=== PATIENT | female | born 1980 | race Caucasian/White ===

== ENCOUNTER 2020-04-15 09:50 | Outpatient (CLI) | payer OTHER, SELFPAY | END 2020-04-15 09:51 | disposition home or self-care (01) | LOC: ANHCOVIDVC 09:51 | PROVIDERS: PCP Emergency Medicine | DX: Z23 Encounter for immunization (principal) | CPT/HCPCS: 0001A; 91300 ==

== ENCOUNTER 2020-05-06 09:42 | Outpatient (CLI) | payer OTHER, SELFPAY | END 2020-05-06 09:43 | disposition home or self-care (01) | LOC: ANHCOVIDVC 09:42 | PROVIDERS: PCP Emergency Medicine | DX: Z23 Encounter for immunization (principal) | CPT/HCPCS: 0002A; 91300 ==

== ENCOUNTER 2020-12-07 19:54 | Emergency (ER) | payer OTHER, SELFPAY ==
--- NOTE | ~2020-12-07 | CT_ITS ---
EXAMINATION: CT abdomen pelvis wo con EXAM DATE: 12/07/2020 21:40 INDICATION: Vomiting and epigastric pain. TECHNIQUE: Spiral CT of the abdomen and pelvis was performed without contrast. Axial, coronal and s agittal images of the abdomen and pelvis were reviewed. The dose-length product (DLP) for this exami nation was 642.55 mGy-cm. The exposure was tailored according to patient size (auto mA exposure cont rol), and iterative reconstruction (ASIR) was used as additional dose reduction technique. There is no prior study for comparison. FINDINGS: The liver, spleen, adrenal glands and pancreas are unremarkable. Punctate calcification de pendent aspect of the gallbladder. No pericholecystic fat stranding. No biliary duct dilation. There is no nephrolithiasis or hydronephrosis. The uterus and ovaries are unremarkable, no adnexal mass. The bladder is unremarkable. There is no retroperitoneal or pelvic lymphadenopathy. The appendix is normal. The stomach and small bowel are unremarkable. There is expected amount of c olonic stool. No free intraperitoneal gas. The heart is normal in size. There are no pericardial or pleural effusions. The lung bases are unremarkable. There are no osteoblastic or osteolytic les ions identified. IMPRESSION: 1. No acute intra-abdominal findings. 2. Punctate cholelithiasis. Reviewed, dictated and finalized at location A.
--- NOTE | ~2020-12-07 | CT_ITS ---
EXAMINATION: CT brain wo con EXAM DATE: 12/07/2020 21:40 INDICATION: Nausea vomiting epigastric pain, glioblastoma. TECHNIQUE: Spiral CT of the head was performed without contrast. Axial, coronal and sagittal images were reviewed. The dose-length product (DLP) for this examination was 605.33 mGy-cm. The exposure w as tailored according to patient size, and iterative reconstruction (ASIR) was used as additional dos e reduction technique. Comparison is made to prior examination from 07/12/2018. 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 Bifrontal lashawn holes ov erlying this region. Bifrontal regions of dystrophic calcification. There is a right frontal lobe reg ion measuring about 8 mm along the margin of encephalomalacia which is more dense than ferguson matter, c ould be region of laminar necrosis, early dystrophic calcification, probably treatment related change but patient has certainly had follow-up MRI examinations at outside institution which are more speci fic. There is moderate diffuse white matter hypodensity, probably radiation related change. No acute intra cranial hemorrhage, definite glioblastoma recurrence, brain mass, acute infarction, obstructive hydro cephalus, extra-axial collection or other suspicious findings. IMPRESSION: 1. 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 2. No acute findings. Reviewed, dictated and finalized at location A.
[2020-12-07 19:56] VITALS: BP 171/72; PULSE 69; RESP 18; TEMP 36.6; O2SAT 100
[2020-12-07 20:13] LABS: Hematocrit 37.7 % (37.0-47.0); Hemoglobin 13.2 g/dL (12.0-15.0); Immature Granulocyte Absolute 0.05 K/mm3 (0.00-0.031); Immature Granulocyte Percent A 0.5 % (0-0.5); Lymphocytes Absolute Auto 0.49 K/mm3 (0.9-3.2); Lymphocytes Percent Auto 5.3 % (18.3-44.2); Mean Corpuscular Volume 94.3 fl (80-100); Mean Platelet Volume 8.6 fl (7.4-10.4); Monocytes Absolute Auto 0.3 K/mm3 (0.1-0.6); Monocytes Percent Auto 3.3 % (2.6-8.5); Neutrophils Absolute Auto 8.4 K/mm3 (1.3-6.7); Neutrophils Percent Auto 90.9 % (45.5-73.1); Platelet Count Result 141 k/mm3 (150-375); Red Cell Distribution Width 12.4 % (11.5-14.5); White Blood Count 9.2 K/mm3 (4.5-10.0)
[2020-12-07 20:25] LABS: Alanine Aminotransferase 70 U/L (4-35); Alkaline Phosphatase 105 U/L (38-126); Anion Gap 15 mmol/L (8-16); Aspartate Amino Transferase 95 U/L (14-36); Blood Urea Nitrogen 16 mg/dL (7-17); Calcium 9.7 mg/dL (8.4-10.2); Carbon Dioxide 19 mmol/L (22-30); Chloride 106 mmol/L (98-107); Estimated CRCL calculation 86 ml/min; Estimated Glomerular Filt Rate > 60; Glucose 185 mg/dL (65-110); Lipase 66 U/L (23-300); Potassium 4.1 mmol/L (3.4-5.0); Sodium 140 mmol/L (137-145)
[2020-12-07] MEDS: PROCHLORPERAZINE EDISYLATE 10 MG/2 ML VIAL IV PUSH (20:40)
[2020-12-07] MEDS: LACTATED RINGERS 1,000 ML 999 ML IV CONT (20:40)
[2020-12-07 21:50] VITALS: BP 185/84; PULSE 68; RESP 18; O2SAT 99
[2020-12-07 22:06] VITALS: BP 188/82; PULSE 81
[2020-12-07 22:07] VITALS: BP 154/93; PULSE 88
[2020-12-07 22:10] VITALS: BP 130/96; PULSE 98
[2020-12-07 22:36] LABS: Add Urine Microscopic? YES; Appearance Urine Cloudy (Clear); Bilirubin Urine Negative (Negative); Blood Urine Negative (Negative); Color Urine Yellow (Yellow); Glucose Urine UA 2+ mg/dL (Negative); Ketones Urine 2+ mg/dL (Negative); Leukocyte Esterase Ur Negative LEU/UL (Negative); Mucus Urine Rare /lpf; Nitrate Urine Negative (Negative); Protein Urine Negative (Negative); Specific Grav Ur 1.014 (1.001-1.035); Squamous Epithelial Cell Urine Occasional /hpf (Few); Urobilinogen Urine Negative mg/dL (<2.0); WBC Urine 0-3 /hpf
[2020-12-07 22:59] VITALS: BP 177/92; PULSE 73; RESP 18; O2SAT 100
--- NOTE | 2020-12-08 00:03 | ED.NAVMDI ---
HPI - Nausea/Vomiting/Diarrhea General Chief complaint: Nausea/Vomiting/Diarrhea Stated complaint: vomiting Time Seen by Provider: 12/07/20 19:59 Source: patient and family Mode of arrival: ambulatory Limitations: no limitations History of Present Illness HPI Narrative: 40-year-old female History of a brain tumor Here because of concerns for food poisoning She has had nausea and vomiting but no diarrhea since about 4 PM She had some epigastric discomfort as well No fever, no dysuria None of her family members or contacts are ill, no recent travel Related Data Home Medications Medication Instructions Recorded Confirmed levetiracetam PO 12/07/20 12/07/20 pentoxifylline mg PO 12/07/20 Allergies Allergy/AdvReac Type Severity Reaction Status Date / Time morphine Allergy Unknown Unknown Verified 12/07/20 20:07 phenytoin Allergy Unknown Unknown Verified 12/07/20 20:07 Review of Systems Review of Systems: All systems reviewed & are unremarkable except as noted in HPI and below Constitutional: Constitutional: Reports no additional constitutional complaints, Reports chills, Reports fatigue, Denies fever(s), Denies headache(s) and Reports weakness Eyes: Eyes: Reports no additional eye complaints and Denies change in vision ENT: Denies headache(s) and Denies sore throat Cardiovascular: Cardiovascular: Denies chest pain and Denies dyspnea Respiratory: Respiratory: Denies cough and Denies dyspnea Gastrointestinal: Gastrointestinal: Reports abdominal pain, Denies bloating, Denies constipation, Denies diarrhea, Reports nausea and Reports vomiting Genitourinary: Genitourinary: Denies urinary frequency, Denies nocturia and Denies dysuria Musculoskeletal: Musculoskeletal: Reports myalgias, Denies deformity, Denies arthralgias, Denies joint swelling and Denies numbness Integumentary/Breasts: Skin/Breast: Denies rash and Denies wounds Neurologic: Denies headache(s), Denies focal weakness and Denies numbness Psychiatric: Psychiatric: Reports no additional psychiatric complaints Endocrine: Endocrine: Reports no additional endocrine complaints Hematologic/Lymphatic: Hematologic/Lymphatic: Reports no additional hematologic/lymphatic complaints Allergic/Immunologic: Allergic/Immunologic: Reports no additional allergic/immunologic complaints PMFSH Family History Family History Mother Patient's mother is in good health, Onset Age: 58 Father Patient's father is in good health, Onset Age: 52 Social History Social History Smoking status: Former smoker Alcohol intake: current Exam Const: General: no acute distress, alert and ill appearing Orientation/consciousness: patient oriented x3 HENMT: Head: normocephalic, atraumatic, no contusions and no hematomas Ears: external ears normal General nose exam: no epistaxis Eyes: Conjunctivae: conjunctivae normal EOM: EOMs intact bilaterally Neck: Neck: normal visual inspection, supple and no JVD Resp: Effort & Inspection: normal respiratory effort and not labored Auscultation: clear to auscultation bilaterally, no rales, no rhonchi, no wheezes and other (BS =) Cardio: Rate: regular rate Rhythm: regular rhythm Heart sounds: no murmurs GI: Inspection: non-distended GI Palp: Yes Soft to palpation, Yes Tenderness to palpation present (GI) (Mild, epigastric), No Guarding due to palpation present (GI) and No Rebound tenderness present Other: No right upper quadrant tenderness or Ruffin sign : General: Yes no CVA tenderness Skin: General skin exam: normal color and no rashes or lesions noted Neuro: General: patient oriented x3 (alert) and moves all extremities Speech: normal speech Extrem: General: normal to inspection and no pedal edema Psych: Affect: normal affect Course Course Emergency Course: No further vomiting Work-up pretty unremarka
[2020-12-08] MEDS: levETIRAcetam 500MG/NACL 100ML 500 MG/100 ML BAG 400 MG IVPB (00:07)
[2020-12-08 00:32] VITALS: BP 188/93; PULSE 83; RESP 18; O2SAT 100
== END 2020-12-08 00:37 | disposition home or self-care (01) ==
PROVIDERS: Emergency Medicine; Emergency Provider Emergency Medicine; PCP Emergency Medicine
DX: R11.2 Nausea with vomiting, unspecified (principal); Z87.891 Personal history of nicotine dependence; Z85.841 Personal history of malignant neoplasm of brain
CPT/HCPCS: 36415; 70450; 74176; 80053; 81001; 81025; 83690; 85025; 96361; 96365; 96374; 99284; J0780; J1953; J7120

== ENCOUNTER 2020-12-09 15:38 | Emergency (ER) | payer OTHER, SELFPAY ==
[2020-12-09 15:46] VITALS: BP 144/80; PULSE 85; RESP 14; TEMP 36.6; O2SAT 100
[2020-12-09 16:02] LABS: Hematocrit 40.6 % (37.0-47.0); Hemoglobin 13.8 g/dL (12.0-15.0); Immature Granulocyte Absolute 0.02 K/mm3 (0.00-0.031); Immature Granulocyte Percent A 0.2 % (0-0.5); Lymphocytes Absolute Auto 0.49 K/mm3 (0.9-3.2); Lymphocytes Percent Auto 5.8 % (18.3-44.2); Mean Corpuscular Hemoglobin 33.1 pg (26-34); Mean Corpuscular Volume 97.4 fl (80-100); Mean Platelet Volume 8.6 fl (7.4-10.4); Monocytes Absolute Auto 0.2 K/mm3 (0.1-0.6); Monocytes Percent Auto 2.6 % (2.6-8.5); Neutrophils Absolute Auto 7.7 K/mm3 (1.3-6.7); Neutrophils Percent Auto 91.4 % (45.5-73.1); Platelet Count Result 162 k/mm3 (150-375); Red Blood Count 4.17 M/mm3 (4.2-5.4); Red Cell Distribution Width 12.6 % (11.5-14.5); White Blood Count 8.4 K/mm3 (4.5-10.0)
[2020-12-09 16:19] LABS: Alanine Aminotransferase 74 U/L (4-35); Albumin Level 5.1 g/dL (3.5-5.1); Alkaline Phosphatase 95 U/L (38-126); Anion Gap 11 mmol/L (8-16); Aspartate Amino Transferase 52 U/L (14-36); Bilirubin,Total 1.1 mg/dL (0.2-1.3); Blood Urea Nitrogen 25 mg/dL (7-17); Calcium 9.9 mg/dL (8.4-10.2); Carbon Dioxide 27 mmol/L (22-30); Chloride 102 mmol/L (98-107); Estimated CRCL calculation 74 ml/min; Estimated Glomerular Filt Rate > 60; Glucose 170 mg/dL (65-110); Lipase 54 U/L (23-300); Potassium 3.9 mmol/L (3.4-5.0); Sodium 140 mmol/L (137-145)
[2020-12-09 18:19] VITALS: BP 152/86; PULSE 72; RESP 16; O2SAT 98
--- NOTE | 2020-12-09 18:39 | ED.GENADULT ---
HPI - General Adult General Chief complaint: Nausea/Vomiting/Diarrhea Stated complaint: Nausea, Vomiting Time Seen by Provider: 12/09/20 18:15 Source: patient Mode of arrival: ambulatory Limitations: no limitations History of Present Illness HPI narrative: Patient presents for evaluation of nausea and vomiting. She indicates last week Wednesday she was walking her dog and tripped, falling several times. She does not believe she hit her head nor did she have a loss of consciousness. She had some variable joint pain following her falls. She also had some headaches began vomiting on Wednesday. She presented here where CT head was performed and showed changes consistent with reported history of glioblastoma. She had CT abdomen pelvis that showed cholelithiasis. She was discharged home with a prescription for Compazine. Her nausea subsided. Today she had recurrence of her symptoms. She denies any abdominal pain whatsoever. She denies fever, chills, urinary symptoms, vaginal bleeding or discharge. She has serial MRIs of her head every 3-4 months with last about one month ago. She was told at that time was no progression of pathology. She has undergone chemo and radiation in the past for glioblastoma. Related Data Home Medications Medication Instructions Recorded Confirmed levetiracetam PO 12/07/20 12/07/20 pentoxifylline mg PO 12/07/20 Allergies Allergy/AdvReac Type Severity Reaction Status Date / Time morphine Allergy Unknown Unknown Verified 12/07/20 20:07 phenytoin Allergy Unknown Unknown Verified 12/07/20 20:07 Review of Systems Review of Systems: CONSTITUTIONAL: Denies fever, chills, or sweats. EYES: Denies visual changes, redness, or discharge. ENT: Denies rhinorrhea, congestion, sore throat, or otalgia. CARDIOVASCULAR: Denies chest pain, palpitations, or edema. RESPIRATORY: Denies cough or dyspnea. GASTROINTESTINAL: Nausea, vomiting, change in bowel pattern. Denies abdominal pain GENITOURINARY: Denies dysuria or hematuria. SKIN: Denies rash or itching. MUSCULOSKELETAL: Denies back pain, joint pain, or myalgia. NEUROLOGIC: Denies headache, numbness, dizziness, or weakness. PSYCHIATRIC: Denies anxiety or depression. 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 HEAD: Normocephalic, atraumatic. EYES: PERRLA and EOMI. ENT: Nares clear, no rhinorrhea or epistaxis. Mucous membranes moist. Oropharynx without tonsillar hypertrophy exudate or other lesions. Bilateral TMs pearly ferguson nonbulging NECK: Supple. No adenopathy or masses. No carotid bruits or JVD CHEST: Clear to auscultation. No respiratory distress. No wheezes rales or rhonchi HEART: Regular rate and rhythm. No murmur heard. Normal peripheral pulses. ABDOMEN: Soft, nontender, nondistended, normal active bowel sounds. EXTREMITIES: Normal range of motion. No edema. SKIN: Warm, dry, no rash. NEURO: No focal deficits. Alert and oriented x3. PSYCH: Normal mood and affect. Course Course Emergency Course: This is a 40-year-old female wh
[2020-12-09] MEDS: SODIUM CHLORIDE 0.9% IV 1,000 ML 1000 ML IV CONT (19:12)
[2020-12-09] MEDS: FAMOTIDINE 20 MG/2 ML VIAL IV PUSH (19:13)
[2020-12-09] MEDS: PROMETHAZINE HCL 25 MG/ML AMPUL 12.5 MG IV PUSH (19:20)
[2020-12-09 20:09] VITALS: BP 152/81; PULSE 70; RESP 16; O2SAT 98
[2020-12-09 20:51] LABS: Add Urine Microscopic? YES; Appearance Urine Cloudy (Clear); Bacteria Urine Trace /hpf; Bilirubin Urine Negative (Negative); Blood Urine Negative (Negative); Color Urine Yellow (Yellow); Glucose Urine UA 1+ mg/dL (Negative); Ketones Urine 2+ mg/dL (Negative); Leukocyte Esterase Ur Trace LEU/UL (Negative); Mucus Urine Few /lpf; Nitrate Urine Negative (Negative); Protein Urine 1+ mg/dL (Negative); Specific Grav Ur 1.021 (1.001-1.035); Squamous Epithelial Cell Urine Moderate /hpf (Few); Urobilinogen Urine Negative mg/dL (<2.0)
[2020-12-09] MEDS: levETIRAcetam 500MG/NACL 100ML 500 MG/100 ML BAG 400 MG IVPB (22:12)
[2020-12-09 22:58] VITALS: BP 157/87; PULSE 71; RESP 16; O2SAT 100
== END 2020-12-09 22:45 | disposition home or self-care (01) ==
PROVIDERS: General Practice; Emergency Provider Nurse Practitioner; PCP Emergency Medicine
DX: N30.00 Acute cystitis without hematuria (principal); R11.2 Nausea with vomiting, unspecified; Z87.891 Personal history of nicotine dependence; Z85.841 Personal history of malignant neoplasm of brain; Z92.21 Personal history of antineoplastic chemotherapy; Z92.3 Personal history of irradiation
CPT/HCPCS: 36415; 80053; 81001; 81025; 83690; 85025; 96361; 96374; 96375; 99284; J1953; J2550; J3010; J7030

== ENCOUNTER → 2020-12-19 10:10 | Outpatient (CLI) | payer OTHER, SELFPAY ==
--- NOTE | ~2020-12-19 | US_ITS ---
US abdomen limited INDICATION: Nausea and vomiting PROCEDURE: Realtime right upper abdominal ultrasound. COMPARISON: No prior studies for comparison. FINDINGS: The pancreas is normal without focal mass or pancreatic ductal dilation. Liver echotexture is normal without focal mass or intrahepatic biliary dilatation. There is normal directional flow i n the portal vein. There are multiple gallstones. Gallbladder is contracted limiting evaluation for gallbladder wall thi ckening. Common bile duct measures 3 mm. No sonographic Ruffin's sign. IMPRESSION: 1: Cholelithiasis. Reviewed, dictated and finalized at location A. [employer] IMPRESSION: 1: Cholelithiasis.
== END ==
PROVIDERS: PCP Emergency Medicine; Visit Provider Emergency Medicine
DX: R11.2 Nausea with vomiting, unspecified (principal); K80.20 Calculus of gallbladder without cholecystitis without obstruction
CPT/HCPCS: 76705

== ENCOUNTER 2020-12-24 11:35 | Observation (INO) | payer OTHER, SELFPAY ==
--- NOTE | 2020-12-24 11:45 | ADMGEN ---
This patient, Sherrill West, was admitted to 3 [facility] Surg Room 315-01. Patient/family oriented to hospital policies and general routines including ID bracelet, bed and alarms, visiting hours, pain management, procedures, bathroom and other care routines, personal items, smoking policy, room service/diet, and visiting hours. Information on how to activate the Rapid Response Team has been discussed. Patient/Family are encouraged to report perceived risks to care and to ask questions if they do not understand what they are told or what they should do.
--- NOTE | 2020-12-24 13:59 | PM.IMHP ---
H&P: HPI History of Present Illness Date/Time: 12/24/20 13:59 Chief Complaint: Upper abdominal pain, intractable nausea and vomiting Narrative: this is a 40-year-old woman who presented to the office this morning abdominal pain with nausea and vomiting. This has been going on for the past couple weeks and she has been to the emergency department twice. She has had workup which is showed evidence of cholelithiasis. She has not been able to keep hardly any food down over the past several days and has been nauseated and vomiting constantly. She does have a prior history of glioblastoma, but all of her follow-up MRIs and exams have shown complete remission. She states that she did not have any of these similar symptoms with the glioblastoma and her last visit with her oncologist was 1 of the most reassuring who visits she has had in a long time. Head CT on 12/08/2020 was negative. She has had abdominal CT and ultrasound which have shown evidence of cholelithiasis. She does have a strong family history of gallbladder disease. Review of Systems Review of Systems: All systems reviewed & are unremarkable except as noted in HPI and below Constitutional: Constitutional: Denies chills and Denies fever(s) Eyes: Eyes: Denies change in vision ENT: Denies hearing loss, Denies neck pain and Denies sore throat Cardiovascular: Cardiovascular: Denies chest pain and Denies dyspnea Respiratory: Respiratory: Denies cough, Denies dyspnea and Denies wheezing Gastrointestinal: Gastrointestinal: Reports as per HPI Genitourinary: Genitourinary: Denies hematuria and Denies dysuria Musculoskeletal: Musculoskeletal: Denies arthralgias, Denies joint swelling and Denies neck pain Allergic/Immunologic: Allergic/Immunologic: Denies wheezing [facility] Past Medical History Medical History Glioblastoma Seizure Surgical History Surgical History H/O brain surgery Family History Family History Mother Patient's mother is in good health, Onset Age: 58 Father Patient's father is in good health, Onset Age: 52 Social History Social History Smoking status: Never smoker Alcohol intake: current Drinks per week: 1 Substance use: never 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 Gender identity (if verbalized by the patient): Female Sexual Orientation (if Verbalized by the Patient): Straight or Heterosexual Spiritual care concerns: No Meds Home Medications and Allergies Home Medications Medication Instructions Recorded Confirmed Type promethazine 12.5 - 25 mg PO TID PRN #20 tablet 12/09/20 12/24/20 Rx levetiracetam 500 mg tablet 500 mg PO BID 12/11/20 12/24/20 History pentoxifylline 400 mg 400 mg PO BID 12/11/20 12/24/20 History tablet,extended release Allergies Allergy/AdvReac Type Severity Reaction Status Date / Time morphine Allergy Unknown Unknown Verified 12/24/20 12:33 phenytoin Allergy Unknown Unknown Verified 12/24/20 12:33 Exam Const: General: alert; No acute distress Orientation/consciousness: patient oriented x3 Limitations: no limitations HENMT: Head: normocephalic and atraumatic Ears: hearing grossly normal bilaterally General nose exam: Normal external nose present and Normal nares present Mouth: Yes Normal oral and palatal mucosa present and Yes moist mucous membranes Eyes: General: appearance normal, both eyes and all related structures Conjunctivae: conjunctivae normal Sclera: sclerae normal Pupils: Equal, round and reactive pupils present EOM: EOMs intact bilaterally Neck: Neck: normal visual inspection, full ROM, no lymphadenopathy, supple and no JVD Lymphatic: no lymphadenopathy noted Chest: Chest palpation & inspection: normal inspection of
[2020-12-24 14:00] VITALS: BP 198/121; PULSE 98; RESP 20; O2SAT 100
[2020-12-24] MEDS: ONDANSETRON INJ 4 MG/2 ML VIAL IV PUSH (14:32)
[2020-12-24] MEDS: LACTATED RINGERS 1,000 ML 150 ML IV CONT ×2 (14:39→21:56)
[2020-12-24 14:48] LABS: Hematocrit 39.1 % (37.0-47.0); Hemoglobin 13.6 g/dL (12.0-15.0); Immature Granulocyte Absolute 0.03 K/mm3 (0.00-0.031); Immature Granulocyte Percent A 0.4 % (0-0.5); Lymphocytes Percent Auto 5.8 % (18.3-44.2); Mean Corpuscular HGB Conc 34.8 g/dl (32-36); Mean Corpuscular Hemoglobin 32.2 pg (26-34); Mean Corpuscular Volume 92.4 fl (80-100); Mean Platelet Volume 9.1 fl (7.4-10.4); Monocytes Absolute Auto 0.3 K/mm3 (0.1-0.6); Monocytes Percent Auto 3.7 % (2.6-8.5); Neutrophils Absolute Auto 6.3 K/mm3 (1.3-6.7); Neutrophils Percent Auto 90.1 % (45.5-73.1); Platelet Count Result 189 k/mm3 (150-375); Red Blood Count 4.23 M/mm3 (4.2-5.4); White Blood Count 6.9 K/mm3 (4.5-10.0)
[2020-12-24 15:00] LABS: Alanine Aminotransferase 49 U/L (4-35); Albumin Level 5.3 g/dL (3.5-5.1); Alkaline Phosphatase 103 U/L (38-126); Amylase 61 U/L (30-110); Anion Gap 16 mmol/L (8-16); Aspartate Amino Transferase 28 U/L (14-36); Bilirubin,Total 1.2 mg/dL (0.2-1.3); Blood Urea Nitrogen 13 mg/dL (7-17); Carbon Dioxide 20 mmol/L (22-30); Chloride 100 mmol/L (98-107); Estimated Glomerular Filt Rate > 60; Glucose 144 mg/dL (65-110); Lipase 93 U/L (23-300); Potassium 3.9 mmol/L (3.4-5.0); Sodium 136 mmol/L (137-145)
[2020-12-24] MEDS: levETIRAcetam 500MG/NACL 100ML 500 MG/100 ML BAG 400 MG IVPB ×2 (15:46→20:29)
[2020-12-24 17:52] VITALS: BP 160/82
--- NOTE | 2020-12-24 17:59 | PC.NURSE ---
pt and wish to speak to MD before signing consent
[2020-12-24 22:00] VITALS: BP 178/104; PULSE 108; RESP 18; TEMP 36.9; O2SAT 100
[2020-12-24 23:27] VITALS: O2SAT 98
[2020-12-25 06:26] VITALS: BP 177/106; PULSE 94; RESP 14; TEMP 36.6; O2SAT 100
[2020-12-25] MEDS: LACTATED RINGERS 1,000 ML 150 ML IV CONT ×3 (07:12→20:20)
[2020-12-25] MEDS: levETIRAcetam 500MG/NACL 100ML 500 MG/100 ML BAG 400 MG IVPB ×2 (08:40→20:13)
[2020-12-25 09:30] VITALS: BP 168/108; PULSE 87; RESP 16; TEMP 36.7; O2SAT 100
[2020-12-25 10:11] LABS: Beta HCG Quantitative < 2.39 mIU/ML
[2020-12-25] MEDS: ONDANSETRON INJ 4 MG/2 ML VIAL IV PUSH (10:48)
[2020-12-25 14:00] VITALS: BP 186/107; PULSE 94; RESP 18; TEMP 36.9; O2SAT 100
[2020-12-25 17:07] VITALS: PULSE 92
[2020-12-25] MEDS: METOPROLOL TARTRATE INJ 5 MG/5 ML VIAL IV PUSH (17:07)
--- NOTE | 2020-12-25 17:16 | P.PNGS_ITS ---
Progress Note: A&P Assessment and Plan (1) Acute calculous cholecystitis: Code(s): K80.00 - Calculus of gallbladder with acute cholecystitis without obstruction Status: Acute Assessment and Plan: * Will delay surgery until tomorrow. Patient placed on clear liquids. (2) Intractable nausea and vomiting: Code(s): R11.2 - Nausea with vomiting, unspecified Status: Acute (3) Seizure disorder: Code(s): G40.909 - Epilepsy, unspecified, not intractable, without status epilepticus Status: Acute (4) Hypertension: Code(s): I10 - Essential (primary) hypertension Status: Acute Assessment and Plan: * Blood pressure has been high today. Will add prn Metoprolol. Patient can follow up with PCP if this persists. Subjective Subjective Date/Time Seen: 12/25/20 17:16 Interval history: Patient still having nausea and occasional vomiting. Surgery was unable to be performed today due to longer preceding cases. Pain minimal. No fevers. Exam GI: GI Palp: Yes Tenderness to palpation present (GI) (minimal epigastric) Objective Data Vital Signs Vital Signs: Vital Signs - 24 hr 12/24/20 17:52 12/24/20 22:00 12/24/20 23:27 Temperature 36.9 C Pulse Rate 108 H Respiratory Rate 18 Blood Pressure 160/82 H 178/104 H Pulse Oximetry 100 98 12/25/20 06:26 12/25/20 09:30 12/25/20 14:00 Temperature 36.6 C 36.7 C 36.9 C Pulse Rate 94 87 94 Respiratory Rate 14 16 18 Blood Pressure 177/106 H 168/108 H 186/107 H Pulse Oximetry 100 100 100 12/25/20 17:07 Temperature Pulse Rate 92 Respiratory Rate Blood Pressure Pulse Oximetry Intake/Output Intake/Output: Intake & Output 12/22/20 12/23/20 12/24/20 12/25/20 23:59 23:59 23:59 23:59 Intake Total 1400 2100 Balance 1400 2100 Meds/Results Medications: Active Medications Generic Name Dose Route Start Last Admin Trade Name Freq PRN Reason Stop Dose Admin Lactated Ringer's 1,000 mls @ 150 mls/hr 12/24/20 13:55 12/25/20 14:17 Lr - Lactated Ringers Iv IV CONT 150 mls/hr .Q6H40M DEAN Administration Levetiracetam 500 mg in 100 mls @ 400 mls/hr 12/24/20 21:00 12/25/20 08:55 Keppra Iv IVPB Infused Q12HR DEAN Infusion Lactated Ringer's 1,000 mls @ 30 mls/hr 12/25/20 09:30 Lr - Lactated Ringers Iv IV CONT .Q24H DEAN Metoprolol Tartrate 5 mg 12/25/20 15:46 12/25/20 17:07 Metoprolol Tartrate Inj 5 Mg/5 Ml Vial IV PUSH 5 mg Q6H PRN Administration Systolic BP >160 Ondansetron HCl 4 mg 12/24/20 13:52 12/25/20 10:48 Ondansetron Inj 4 Mg/2 Ml Vial IV PUSH 4 mg Q6H PRN Administration Nausea And Vomiting Labs Labs: Laboratory Results - last 24 hr 12/24/20 14:13 Beta HCG, Quant < 2.39
[2020-12-25 19:52] VITALS: BP 176/98; PULSE 79; RESP 16; TEMP 36.4; O2SAT 100
[2020-12-26] VITALS (13 sets, daily range): BP systolic 131–176; BP diastolic 61–99; PULSE 72–108; RESP 14–18; TEMP 36–37.4; O2SAT 96–100
[2020-12-26] MEDS: LACTATED RINGERS 1,000 ML 150 ML IV CONT (03:53)
--- NOTE | 2020-12-26 06:48 | WPDANESEPPF ---
Anes - Initial Pre Proc Eval Procedure: Operation Date: 12/26/20 09:00 Proposed Procedures p Laparoscopic Cholecystectomy,Possible Open - Angelo Ho DO Date/Time: 12/26/20 06:48 Surgeon: Angelo Ho DO Pre Op Diagnosis: acute acalculus cholecystitis Patient Data Age: 40 Gender: F Height: Weight: Last Vital Signs Temp 36.1 C L 12/26/20 06:00 Pulse 72 12/26/20 06:00 Resp 16 12/26/20 06:00 BP 166/61 H 12/26/20 06:00 Pulse Ox 100 12/26/20 06:00 Allergies Allergy/AdvReac Type Severity Reaction Status Date / Time morphine Allergy Unknown Unknown Verified 12/24/20 12:33 phenytoin Allergy Unknown Unknown Verified 12/24/20 12:33 Home Medications Medication Instructions Recorded Confirmed Type promethazine 12.5 - 25 mg PO TID PRN #20 tablet 12/09/20 12/24/20 Rx levetiracetam 500 mg tablet 500 mg PO BID 12/11/20 12/24/20 History pentoxifylline 400 mg 400 mg PO BID 12/11/20 12/24/20 History tablet,extended release Laboratory Tests 12/24/20 14:13 Beta HCG, Quant < 2.39 mIU/ML mIU/ML Patient hx anesthesia problems: none Family hx anesthesia problems: none Results Review: All pre-operative results and documents have been reviewed as part of the pre-operative evaluation. 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 Gender identity (if verbalized by the patient): Female Sexual Orientation (if Verbalized by the Patient): Straight or Heterosexual Spiritual care concerns: No Anes - Eval Final PreProcedure Day of Procedure 12/26/20 06:48 Patient weight: obese Heart: regular rate and rhythm Lungs: clear to auscultation and normal air movement Airway: Mallampati scale class II Neurological: alert and oriented Last oral intake: >/= 8 hours ASA classification: IV Emergent: no Anesthetic plan: proceed Anesthesia type and monitoring: general ETT Results Review: All pre-operative results and documents have been reviewed as part of the pre-operative evaluation. Informed Consent: The patient's anesthetic plan and its attendant risks and benefits were discussed with the patient/family/POA. Questions were solicited and answers provided to the satisfaction of the patient/family/POA.
[2020-12-26] MEDS: LACTATED RINGERS 1,000 ML 30 ML IV CONT (07:00)
--- NOTE | 2020-12-26 08:48 | WPDHPUPDATE1 ---
History and Physical Update Update Date/Time: 12/26/20 08:48 History and Physical has been reviewed, including an updated exam of the patient. There are NO changes in the patient's condition. Risks, benefits, and alternatives have been discussed and questions answered. Patient agrees to proceed with procedure.
[2020-12-26] MEDS: levETIRAcetam 500MG/NACL 100ML 500 MG/100 ML BAG 400 MG IVPB (08:56)
[2020-12-26] MEDS: ceFAZolin 2 GM/D5W 50 ML 2 GM/50 ML BAG IVPB (09:42)
--- NOTE | 2020-12-26 10:39 | W.PM.PROC2 ---
Procedure Note - Detailed Date of Procedure 12/26/20 Pre-op Diagnosis acute acalculus cholecystitis Post-op Diagnosis same Procedure Performed Laparoscopic Cholecystectomy Surgeon Angelo Ho, DO Anesthesia MAC and local (0.5% bupivacaine) Indications This is a 40-year-old woman who presented with upper abdominal pain with intractable nausea and vomiting over the past couple weeks. She has been to the emergency department twice. CT and ultrasound of showed evidence of cholelithiasis, but no surrounding signs of inflammation. She was seen in the office on 12/24 and was having more constant pain with persistent nausea and vomiting. Decision was made to admit patient directly from the office and plan to proceed with laparoscopic cholecystectomy within the next 1-2 days. Findings Laparoscopic cholecystectomy was performed. The gallbladder had some mild gallbladder wall thickening and several small gallstones were noted within the gallbladder lumen. The cystic duct appeared normal in size. There was 1 lymph node within Calot's triangle. No other intra-abdominal abnormalities were noted. The gallbladder was removed and sent to the lab for pathology. Description of Procedure Procedure as well as risks, benefits, and alternatives were discussed with patient. Written consent was obtained and placed in chart prior to procedure. The patient was brought back to surgical suite. Patient was placed in supine position on operating table. Time-out was done to confirm patient and procedure. Patient was then intubated by the anesthesia department. Abdomen was prepped and draped in sterile fashion using chlorhexidine prep. 0.5% bupivacaine with epinephrine was infiltrated at each site of incision. A 5 millimeter incision was made near the umbilicus, and a 5 millimeter Optiview trocar was advanced through the abdominal layers under direct visualization. Once inside the abdominal cavity, carbon dioxide was insufflated to create a pneumoperitoneum. The camera was inserted and the abdomen was inspected. No immediate abnormalities were identified. The patient was placed in reverse Trendelenburg position and rotated slightly to the left. An 11 millimeter incision was made in the subxiphoid region, and an 11 millimeter trocar was inserted under direct visualization. Two 5 millimeter incisions were made in the right upper quadrant, and two 5 millimeter trocars were inserted under direct visualization. The gallbladder was identified and grasped at the fundus and retracted superiorly. It was then grasped at the infundibulum retracted laterally. Careful dissection around the neck of the gallbladder was performed using blunt dissection with a [place] grasper and hook electrocautery. The cystic duct was identified, and a window was created behind it. The cystic artery was also identified and a window was created behind it. The critical view of safety was identified, visualizing the cystic duct running directly into the neck of the gallbladder, and the cystic artery running directly into the wall of the gallbladder. A 5 millimeter clip team assembly line machine operator was then used to place 2 clips proximally and 1 clip distally on both the cystic duct and cystic artery. They were then both transected using endoscopic scissors. Once safely away from the live hepatitis, the gallbladder was dissected free from the liver bed using hook electrocautery. Hemostasis was achieved along the way. The gallbladder was removed completely and then removed through the subxiphoid port. The liver bed was then inspected. Hemostasis appeared adequate, and our clips appeared secure. The area was gently irrigated with sterile saline. No other abnormalities were seen. The patient was flattened out in bed, and 1 final inspection was made around the abdominal cavity. The subxiphoid port was removed, and a Blair Ashley cone was used to approximate the fascia with an 0-Vicryl simple interrupted suture. The re
--- NOTE | 2020-12-26 11:21 | SUR.PHASEI ---
PT BP ELEVATED. 170S/100. HR 70. DR GRULLON NOTIFIED. HYDRALAZINE 10MG IV ORDERED
[2020-12-26] MEDS: hydrALAZINE HCL 20 MG/ML VIAL 10 MG IV PUSH (11:27)
--- NOTE | 2020-12-26 11:33 | SUR.PHASEI ---
PT C/O MILD DIZZINESS. EXPLAINED HER BP IS ELEVATED AND GIVING MED FOR IT. INSTRUCTED PT TO LET RN NOW IF WORSENS. PT VERBALIZED UNDERSTANDING
--- NOTE | 2020-12-26 11:41 | SUR.PHASEI ---
PT STATES DIZZINESS IS GONE NOW. BP 140S/80S
--- NOTE | 2020-12-26 11:55 | SUR.PHASEI ---
PT DENIES PAIN OR NAUSEA. STATES DIZZINESS IS GONE. RESTING QUIETLY
[2020-12-26] MEDS: ONDANSETRON INJ 4 MG/2 ML VIAL IV PUSH ×2 (12:06→13:43)
--- NOTE | 2020-12-26 12:20 | SUR.PHASEI ---
PT STATES RELIEF OF NAUSEA
--- NOTE | 2020-12-26 12:28 | SUR.PHASEI ---
PT AWAKE AND ALERT. TALKATIVE. WAITING TO GIVE REPORT
--- NOTE | 2020-12-26 12:29 | SUR.PHASEI ---
PT UNABLE TO VOID ON BEDPAN.
--- NOTE | 2020-12-26 12:38 | PC.NURSE ---
Return from OR per stretcher. Report from [facility] @ [id number]. Patient's mother at bedside.
[2020-12-26] MEDS: levETIRAcetam 500 MG TABLET PO (20:05)
[2020-12-27 02:18] VITALS: BP 152/74; PULSE 80; RESP 18; TEMP 36.9; O2SAT 96
[2020-12-27 06:18] VITALS: BP 156/79; PULSE 82; RESP 16; TEMP 36.9; O2SAT 98
[2020-12-27] MEDS: levETIRAcetam 500 MG TABLET PO (08:01)
--- NOTE | 2020-12-27 09:03 | WPDANESPN ---
Anes - Prog Note Post-Op Date/Time: 12/27/20 09:03 Cardiovascular status: normal Respiratory status: normal Airway patency: baseline Mental status: baseline Post-Op hydration status: normal Vital Signs: Last Vital Signs Temp 36.9 C 12/27/20 06:18 Pulse 82 12/27/20 06:18 Resp 16 12/27/20 06:18 BP 156/79 H 12/27/20 06:18 Pulse Ox 98 12/27/20 06:18 Pain Score (VAS): 0 I/O: Intake & Output 12/26/20 12/27/20 12/27/20 23:59 07:59 15:59 Intake Total 20 300 Balance 20 300 Laboratory Tests 12/24/20 14:13 12/24/20 14:13 Post-procedural complaints: none Patient Feedback: Patient satisfied with anesthetic care.
[2020-12-27] MEDS: polyethylene glycoL 3350 17 GM POWD.PACK PO (09:58)
--- NOTE | 2020-12-27 11:51 | PM.DS ---
DS: Admitting Diagnosis Discharge Date 12/27/2020 Admitting Diagnosis acute calculous cholecystitis, intractable nausea and vomiting, dehydration DS: Discharge Diagnosis Discharge Diagnosis (1) Acute calculous cholecystitis: Code(s): K80.00 - Calculus of gallbladder with acute cholecystitis without obstruction Status: Acute (2) Intractable nausea and vomiting: Code(s): R11.2 - Nausea with vomiting, unspecified Status: Acute DS: Summary Hospital Course Reason for hospitalization: acute calculous cholecystitis Hospital Course: this is a 40-year-old woman who presented with upper abdominal pain with nausea and vomiting over the past 2 weeks. She had previously been to the emergency department twice. Workup in the emergency department showed evidence of cholelithiasis, but she did not have any evidence of cholecystitis on the imaging. She was seen in the office on 12/24/2020 and had been experiencing more constant abdominal pain with nausea and vomiting which suggested likely acute cholecystitis. She was then it directly admitted from the office to the hospital for further treatment. She appeared very dehydrated and was not able to keep any solid or liquid food down. She was also not able to take her anti seizure medications due to her amount of nausea and vomiting. She was placed on IV fluids and was given IV Keppra. IV antiemetics were also ordered. She then underwent laparoscopic cholecystectomy on 12/26/2020. Postoperatively she was still experiencing some nausea secondary to the anesthetics. Her diet was kept to clear liquids until the nausea was improving. On 12/27/2020, the nausea was much improved. She was advanced to a low-fat diet. Her pain was well controlled and she was remaining hemodynamically stable. She was discharged on 12/27/2020. Status at Discharge Functional status at discharge: independent ambulation Overall status at discharge: patient is progressing back to baseline Time Spent with Patient Time attestation: Total time spent providing and/or coordinating discharge services: Time spent: Less than 30 minutes Exam Const: General: cooperative and no acute distress Orientation/consciousness: patient oriented x3 Resp: Effort & Inspection: normal respiratory effort Auscultation: clear to auscultation bilaterally Cardio: Rate: regular rate Rhythm: regular rhythm Heart sounds: S1 normal heart sound present and S2 normal heart sound present GI: Inspection: normal to inspection, non-distended and incision ( Intact with glue) GI Palp: Yes Soft to palpation and Yes Tenderness to palpation present (GI) ( incisional) Auscultation: normal bowel sounds DS: Data Data Completed and Pending Pending studies at discharge: Pending at discharge 12/26/20 10:00 Surgical [PTH] Routine Discharge Plan Discharge Attending physician on discharge: Angelo Clements Discharging Clinician: Angelo Clements Patient Disposition: Home, Self-Care Activity: other - see discharge instructions Diet: low fat Wound Care Instructions: other - see discharge instructions Discharge Instructions: DISCHARGE INSTRUCTION SHEET FOR HERNIA, GALLBLADDER AND APPENDIX SURGERIES DR. CLEMENTS PATIENT TO TAKE HOME 1. May shower, no soaking in bath x 2weeks. 2. Call office for: Wound increasingly painful or bleeding Vomiting Fever of greater than 101 degrees 3. If no bowel movement for three days, take 1 oz. (30 ml) Milk of Magnesia or MiraLax 17g 1 to 2 times daily. 4. No heavy lifting > 10-15 pounds x weeks for hernia repairs and 2 weeks for laparoscopic cholecystectomy or appendectomy. 5. No driving for 3 days or while taking narcotic pain medications. 6. Ice to surgical site for 48 hours (30 min on, then 30 min off). 7. Up walking 10-30 minutes three times per day. 8. Resume previous home medications. 9
== END 2020-12-27 13:15 | disposition home or self-care (01) ==
PROVIDERS: Anesthesiology; Admitting Provider Surgery; PCP Emergency Medicine; Visit Provider Surgery
PROC: 0FT44ZZ Resection of Gallbladder, Percutaneous Endoscopic Approach (ICD-10-PCS; CPT 47562; principal; 2020-12-26 09:00)
DX: K80.10 Calculus of gallbladder with chronic cholecystitis without obstruction (principal); E86.0 Dehydration; G40.909 Epilepsy, unspecified, not intractable, without status epilepticus; Z85.841 Personal history of malignant neoplasm of brain; R11.0 Nausea; R59.9 Enlarged lymph nodes, unspecified
CPT/HCPCS: 47562; 36415; 80053; 82150; 83690; 84702; 85025; 86850; 86900; 86901; 88304; 96361; 96374; 96375; 96376; A9270; G0378; G0379; J0330; J0360; J0690; J1100; J1953; J2250; J2405; J2704; J2710; J3010; J7030; J7120

== ENCOUNTER 2021-05-21 18:41 | Emergency (ER) | payer OTHER, SELFPAY ==
--- NOTE | ~2021-05-21 | CT_ITS ---
EXAMINATION: CT brain wo con DATE: 05/21/2021 19:24 INDICATION: Seizure. History of glioblastoma. TECHNIQUE: Computed tomography (CT) of the head was performed without intravenous contrast. The mA wa s adjusted according to patient size. Iterative reconstruction technique was employed. The dose-lengt h product was 529.67 mGy-cm. COMPARISON: 12/07/2020. FINDINGS: New 3 mm ill-defined hypodensity in the right frontal lobe white matter. No extra-axial fluid collect ion. No hydrocephalus or herniation. No acute ischemic infarct. Unremarkable dural venous sinus attenuation. No acute osseous abnormality. The aerated spaces are clear. Postsurgical and posttreatment changes in the bifrontal skull, frontal lobes, and corpus callosum. Mo derate chronic white matter change. IMPRESSION: Indeterminate 3 mm right frontal lobe hyperdensity, may reflect a small focus of hemorrhage, recurren t tumor, or treatment-related change. Reviewed, dictated and finalized at location K. IMPRESSION: Indeterminate 3 mm right frontal lobe hyperdensity, may reflect a small focus o f hemorrhage, recurrent tumor, or treatment-related change.
--- NOTE | ~2021-05-21 | XR_ITS ---
EXAM: XR foot RT min 3V HISTORY: seizure, bruising to dorsal rt tarsals 3-5, TTP COMPARISON: None available FINDINGS: Normal mineralization. No fracture or dislocation. No lytic or blastic lesion. Joint space s maintained. No erosion or periosteal change. Soft tissues within normal limits. Os navicularis. IMPRESSION: No acute osseous finding in the right foot. Reviewed, dictated and finalized at location K.
--- NOTE | 2021-05-21 18:48 | ED.GENADULT ---
HPI - General Adult General Chief complaint: Seizure <Naye Dinero PA-C - Last Filed: 05/21/21 21:33> Stated complaint: SEIZURE ACTIVITY, BRAIN TUMOR <Naye Dinero PA-C - Last Filed: 05/21/21 21:33> Time Seen by Provider: 05/21/21 18:46 <Naye Dinero PA-C - Last Filed: 05/21/21 21:33> Source: patient and old records reviewed <Naye Dinero PA-C - Last Filed: 05/21/21 21:33> Mode of arrival: EMS <Naye Dinero PA-C - Last Filed: 05/21/21 21:33> Limitations: no limitations <Naye Dinero PA-C - Last Filed: 05/21/21 21:33> History of Present Illness HPI narrative: Patient is a 40 y/o female who presents to the ED, via EMS, with report of seizure. Patient's significant other at bedside assisted in providing information. He reports patient was sitting in the front seat of a car [employer] and they were getting ready to attend a movie when she suddenly developed seizure like activity. He reports she was shaking and stiff mostly on her right side. He does not believe she ever lost consciousness fully. She did not hit her head or fall. Significant other reports the seizure-like activity lasted approximately 3 minutes and she was slow to respond afterwards. She is talking more currently in the ED bed. Patient has a history of a glioblastoma brain surgery + chemo/radiation 2 years ago. She has had seizures associated with the brain tumor but last had a seizure 3 years ago, prior to treatment for glio. She does take Keppra 500 mg twice daily. She denies missing any doses. Patient reports she has been feeling fine lately. She does not remember anything about the event today and denied having any significant prodromal symptoms prior to the seizure like activity. She is currently asymptomatic in the ED bed. No headache, fever, chills, neck pain, chest pain, shortness of breath, abdominal pain, nausea, vomiting, vision changes, recent urinary symptoms. Patient significant other notes she receives interval MRIs every 3 months since her brain surgery and is scheduled to have an MRI tomorrow. Patient sees Dr. Mp Torres, oncology @ [facility]. <Naye Dinero PA-C - Last Filed: 05/21/21 21:33> Related Data Home medications: Home Medications Medication Instructions Recorded Confirmed levetiracetam 500 mg tablet 500 mg PO BID 12/11/20 01/10/21 pentoxifylline 400 mg 400 mg PO BID 12/11/20 01/10/21 tablet,extended release <Naye Dinero PA-C - Last Filed: 05/21/21 21:33> Allergies/adverse reactions: Allergies Allergy/AdvReac Type Severity Reaction Status Date / Time morphine Allergy Unknown Unknown Verified 05/21/21 18:54 phenytoin Allergy Unknown Unknown Verified 05/21/21 18:54 <Naye Dinero PA-C - Last Filed: 05/21/21 21:33> Review of Systems Review of Systems: CONSTITUTIONAL: Denies fever, chills, or sweats. EYES: Denies visual changes. CARDIOVASCULAR: Denies chest pain. RESPIRATORY: Denies dyspnea. GASTROINTESTINAL: Denies abdominal pain, nausea, vomiting, or diarrhea. GENITOURINARY: Denies dysuria or hematuria. MUSCULOSKELETAL: Denies neck pain, back pain, joint pain, or myalgia. NEUROLOGIC: Reports seizure like activity. Denies LOC, headache, numbness, or weakness. <Naye Dinero PA-C - Last Filed: 05/21/21 21:33> All systems reviewed & are unremarkable except as noted in HPI and below <Naye Dinero PA-C - Last Filed: 05/21/21 21:33> [facility] Past Medical History Medical History: Medical History Brain tumor Glioblastoma Hypertension Seizure <Naye Dinero PA-C - Last Filed: 05/21/21 21:33> Surgical History Surgical History: Surgical History H/O brain surgery Hx laparoscopic cholecystectomy 12/26/20 <Naye Dinero PA-C - Last Filed: 05/21/21 21:33> Family History Family History: Family History
[2021-05-21 18:49] VITALS: BP 136/98; PULSE 106; RESP 16; O2SAT 100
[2021-05-21 18:52] VITALS: PULSE 99
--- NOTE | 2021-05-21 18:55 | ECG_ITS ---
Measurements Intervals [place] Rate: 101 P: 20 CA: 167 QRS: -7 QRSD: 89 T: 29 QT: 346 QTc: 448 Interpretive Statements SINUS TACHYCARDIA POSSIBLE ANTERIOR MYOCARDIAL INFARCTION , PROBABLY OLD [30 ms Q WAVE IN V3/V4, OR R < 0.2 mV IN V4] ABNORMAL ECG COMPARED TO ECG 07/12/2018 13:25:41 SINUS TACHYCARDIA NOW PRESENT Electronically Signed On 05-22-2021 16:42:37 CDT by [place] M.D.
--- NOTE | 2021-05-21 19:15 | PC.NURSE ---
Assuming care of pt.
[2021-05-21 19:45] VITALS: BP 131/86; PULSE 80; RESP 18; O2SAT 100; O2SAT 98
[2021-05-21] MEDS: levETIRAcetam 1000MG/NACL100ML 1,000 MG/100 ML BAG 400 MG IVPB (19:47)
[2021-05-21 19:52] LABS: Basophils Percent Auto 0.2 % (0.2-1.2); Eosinophils Percent Auto 0.2 % (0-4.4); Hemoglobin 12.7 g/dL (12.0-15.0); Immature Granulocyte Absolute 0.02 K/mm3 (0.00-0.031); Immature Granulocyte Percent A 0.5 % (0-0.5); Lymphocytes Absolute Auto 0.99 K/mm3 (0.9-3.2); Lymphocytes Percent Auto 24.1 % (18.3-44.2); Mean Corpuscular HGB Conc 34.3 g/dl (32-36); Mean Corpuscular Volume 96.1 fl (80-100); Mean Platelet Volume 8.4 fl (7.4-10.4); Monocytes Absolute Auto 0.3 K/mm3 (0.1-0.6); Monocytes Percent Auto 8.3 % (2.6-8.5); Neutrophils Absolute Auto 2.7 K/mm3 (1.3-6.7); Neutrophils Percent Auto 66.7 % (45.5-73.1); Platelet Count Result 136 k/mm3 (150-375); Red Blood Count 3.85 M/mm3 (4.2-5.4); Red Cell Distribution Width 12.6 % (11.5-14.5); White Blood Count 4.1 K/mm3 (4.5-10.0)
[2021-05-21 20:04] LABS: Alanine Aminotransferase 20 U/L (4-35); Albumin Level 4.5 g/dL (3.5-5.1); Alkaline Phosphatase 72 U/L (38-126); Anion Gap 7 mmol/L (8-16); Aspartate Amino Transferase 25 U/L (14-36); Bilirubin,Total 0.4 mg/dL (0.2-1.3); Blood Urea Nitrogen 16 mg/dL (7-17); Calcium 8.8 mg/dL (8.4-10.2); Carbon Dioxide 26 mmol/L (22-30); Chloride 104 mmol/L (98-107); Estimated CRCL calculation 85 ml/min; Estimated Glomerular Filt Rate > 60; Glucose 103 mg/dL (65-110); Potassium 3.9 mmol/L (3.4-5.0); Sodium 137 mmol/L (137-145)
[2021-05-21 20:32] VITALS: BP 146/88; PULSE 82; RESP 16; O2SAT 100
[2021-05-21 20:55] LABS: Appearance Urine Clear (Clear); Bilirubin Urine Negative (Negative); Blood Urine Negative (Negative); Color Urine Yellow (Yellow); Glucose Urine UA Negative (Negative); Ketones Urine Negative (Negative); Leukocyte Esterase Ur Negative LEU/UL (Negative); Nitrate Urine Negative (Negative); Protein Urine Negative (Negative); Urobilinogen Urine 0.2 mg/dL (<2.0)
[2021-05-21 21:23] LABS: Add Urine Microscopic? NO
== END 2021-05-21 21:54 | disposition home or self-care (01) ==
PROVIDERS: Physician Assistant; Emergency Provider Emergency Medicine; PCP Emergency Medicine
DX: R56.9 Unspecified convulsions (principal); C71.1 Malignant neoplasm of frontal lobe; I10 Essential (primary) hypertension; Z92.21 Personal history of antineoplastic chemotherapy; Z92.3 Personal history of irradiation; Z87.891 Personal history of nicotine dependence
CPT/HCPCS: 36415; 70450; 73630; 80053; 81003; 85025; 93005; 96374; 99284; J1953